=== PATIENT | female | born 1940 | race Hispanic/Latino ===

== ENCOUNTER 2019-05-22 12:43 | Outpatient (CLI) | payer OTHER ==
--- NOTE | 2019-05-23 11:03 | Mammography Report ---
DIGITAL SCREENING MAMMOGRAM WITH CAD, 05/22/2019 INDICATION: Routine screening mammography. TECHNIQUE: Digital bilateral 2D mammography was obtained in the craniocaudal and mediolateral obliq ue projections. This examination was interpreted with the benefit of Computer-Aided Detection analysi s. COMPARISON: None available. However, she indicated she had a previous mammogram at [facility]. FINDINGS: Breast Density: The breasts are heterogeneously dense, which may obscure small masses. 2 right outer parenchymal asymmetries with calcifications and one left outer asymmetry require additi onal imaging. No architectural distortion. No suspicious calcifications of the left breast. IMPRESSION: Bilateral asymmetries and right breast calcifications requiring additional imaging. Recom mend recall for right spot magnification and left spot compression views and bilateral breast ultraso und if needed. We will also attempt to obtain a prior mammogram for comparison. Follow up recommendation: Special View: Mag Category 0: Incomplete. Needs additional imaging evaluation and/or prior mammograms for comparison. A "normal" or negative report should not discourage follow up or biopsy of a clinically significant f inding. A written summary of these findings will be mailed to the patient. The patient will be entered into a mammography reporting system which will generate a reminder letter for the patient's next appointmen t at the appropriate interval. The [employer] recommends yearly mammograms starting at age 40 and continuing as l marisa as a woman is in good health. Breast MRI is recommended for women with an approximate 20-25% or greater lifetime risk of breast cancer, including women with a strong family history of breast or ova yi cancer or who have been treated for Hodgkin's disease. Signer Name: Uday Grace MD Signed: 05/23/2019 10:58 AM Workstation Name: [id number]
== END 2019-05-22 12:44 | disposition home or self-care (01) ==
LOC: MAMMO 12:43
PROVIDERS: ATTEND Internal Medicine
DX: Z12.31 Encounter for screening mammogram for malignant neoplasm of breast (principal)
CPT/HCPCS: 77067